=== PATIENT | female | born 1980 | race Caucasian/White ===

== ENCOUNTER 2020-01-12 07:30 | Day surgery (SDC) | payer BC ==
[2020-01-10 14:38] LABS: BASOPHILS 0.2 % (0-2); EOSINOPHILS 2.8 % (0-7); HEMATOCRIT 42.8 % (36.0-48.0); IMMATURE GRANULOCYTES 0.2 % (0-5); MCH 28.9 pg (26.0-34.0); MCHC 32.7 g/dL (31.0-37.0); MCV 88.4 fL (80.0-100.0); MEAN PLATELET VOLUME 8.8 fL (7.4-10.4); MONOCYTES 9.1 % (2-11); NEUTROPHILS 55.7 % (40-80); PLATELET COUNT 334 10x3/uL (130-400); RBC 4.84 10x6/uL (4.00-5.40); RDW 13.2 % (11.5-14.5); WBC 8.7 10x3/uL (4.8-10.8)
[~2020-01-12] VITALS: Ht 154.9 cm; Wt 93.9 kg
[~2020-01-12 07:30] MED LIST: BUPROPION HCL75 MG PO; BUPROPION XL150 MG PO; REXULTI1 MG PO
[2020-01-12 07:56] VITALS: BP 124/57; Ht 154.9 cm; Wt 93.9 kg
[2020-01-12 08:05] LABS: HCG URINE NEGATIVE (NEGATIVE)
--- NOTE | 2020-01-12 11:10 | NUR ---
ASHER LOT [id number] REF [id number] EXP 04/05/2024
--- NOTE | 2020-01-12 11:43 | NUR ---
SCOPE PACH BEHIND RT EAR ON ADMIT
--- NOTE | 2020-01-12 14:51 | NUR ---
1158-AMBULATED TO RESTROOM AND VOIDED WITHOUT COMPLICATIONS
--- NOTE | 2020-01-12 14:51 | NUR ---
1223-VSS.PAIN 4/10 DESCRIBES DISCOMFORT. NO DISTRESS, NO N/V.
--- NOTE | 2020-01-12 14:52 | NUR ---
1300-REMOVED IV WITH CATH INTACT,DISPOSED INTO SHARPS.COVERED WITH GUAZE,SECURED WITH MEDIPORE TAPE.REIVEWED POST OP INSTRUCTIONS AND FOLLOW UP APPOINTMENT.VERBALIZED UNDERSTANDING. ESCORTED OUT VIA W/C WITH FRIEND TO DRIVE HOME
== END 2020-01-12 13:00 | disposition home or self-care (01) ==
LOC: D.PAN → D.OPS 07:30 → D.PAN 09:30 → D.OPS 13:00
PROVIDERS: ATTEND Obstetrics & Gynecology
DX: R10.2 Pelvic and perineal pain (principal); N83.209 Unspecified ovarian cyst, unspecified side